=== PATIENT | male | born 1995 | race Caucasian/White ===

== ENCOUNTER → 2019-02-11 16:19 | Outpatient (BNVA) | payer SELFPAY | PROVIDERS: Family Provider Family Medicine; PCP Family Medicine; Visit Provider Nurse Practitioner | DX: R50.9 Fever, unspecified (principal); J09.X9 Influenza due to identified novel influenza A virus with other manifestations | CPT/HCPCS: 87804 ==

== ENCOUNTER → 2020-10-31 11:20 | Outpatient (BNVA) | payer OTHER, SELFPAY | PROVIDERS: Family Provider Family Medicine; Visit Provider Registered Nurse Neonatal Intensive Care | DX: Z20.822 Contact with and (suspected) exposure to COVID-19 (principal) | CPT/HCPCS: 87635 ==